=== PATIENT | female | born 1975 | race Two or more races ===

== ENCOUNTER 2016-09-07 19:37 | Emergency (ER) | payer MEDICAID, OTHER ==
[~2016-09-07] VITALS: Ht 162.6 cm; Wt 69.4 kg
[2016-09-07 19:52] VITALS: BP 116/80
== END 2016-09-08 00:30 | disposition left against medical advice (07) ==
LOC: ER 19:37
DX: S61.217A Laceration without foreign body of left little finger without damage to nail, initial encounter (principal); Z53.21 Procedure and treatment not carried out due to patient leaving prior to being seen by health care provider; W45.8XXA Other foreign body or object entering through skin, initial encounter; Y93.89 Activity, other specified; Y99.8 Other external cause status; Y92.89 Other specified places as the place of occurrence of the external cause